=== PATIENT | male | born 1950 | race Caucasian/White ===

== ENCOUNTER → 2017-05-29 17:25 | Outpatient (CLI) | payer OTHER ==
[~2017-05-29 17:25] MED LIST: AMBIEN5 MG PO; B-1100 MG PO; BICARSIM FORTE125 MG PO; CIPRO500 MG PO; COSENTYX (150 MG/1 M SQ; DICY20TA PO; DIOVAN160 M1 PO; DIOVAN40 MG; DIPHENOXYLATE-A1 TAB PO; FLAGYL500MG PO; GABA PO; GABAPENTIN600 MG PO; INTEGRA F CAPS1 EACH PO; INTESTINEX1 CA1 PO; INTESTINEX680 MG PO; LEVSIN/SL0.125 MG SL; LOSARTAN-HCTZ1 EAC1 PO; METOPROLOL SUCC50 MG PO; OXYC1TAB9 PO; OXYCONTIN10 MG PO; PERCOCET 5/3251 TAB PO; PRILOSEC40 MG PO; PROTONIX40 MG PO; TRAM1TAB98 PO; VITAMIN B-125000 MCG SL; WELLBUTRIN SR PO; XANAX1 MG; XARELTO20 MG PO
== END | disposition home or self-care (01) ==
LOC: RAD 17:25
DX: C83.30 Diffuse large B-cell lymphoma, unspecified site (principal)

== ENCOUNTER 2017-07-23 08:11 | Outpatient (CLI) | payer OTHER | END 2017-07-23 08:33 | disposition home or self-care (01) | LOC: NUCLEAR 08:11 | DX: C83.30 Diffuse large B-cell lymphoma, unspecified site (principal); I42.7 Cardiomyopathy due to drug and external agent | CPT/HCPCS: 78472; 78496; A9560 ==

== ENCOUNTER 2018-04-02 10:40 | Day surgery (SDC) | payer OTHER | END 2018-04-02 16:35 | disposition home or self-care (01) | LOC: AMB-ENDOS 10:40 | DX: K64.8 Other hemorrhoids (principal) ==

== ENCOUNTER 2018-06-03 20:07 | Emergency (ER) | payer OTHER ==
[~2018-06-03] VITALS: Ht 172.7 cm; Wt 65.8 kg
== END 2018-06-03 22:35 | disposition home or self-care (01) ==
LOC: ER 20:07
DX: L13.0 Dermatitis herpetiformis (principal)

== ENCOUNTER 2018-12-20 09:16 | Outpatient (CLI) | payer OTHER | END 2018-12-20 11:04 | disposition home or self-care (01) | LOC: SONOGRAMA 09:16 | DX: R80.8 Other proteinuria (principal) ==

== ENCOUNTER 2019-01-10 13:23 | Outpatient (CLI) | payer OTHER | END 2019-01-10 14:00 | disposition home or self-care (01) | LOC: NUCLEAR 13:23 | DX: I42.7 Cardiomyopathy due to drug and external agent (principal) | CPT/HCPCS: 78472; 78496; A9560 ==

== ENCOUNTER 2019-03-01 08:18 | Emergency (ER) | payer OTHER ==
[~2019-03-01] VITALS: Ht 170.2 cm; Wt 67.1 kg
[2019-03-01] MEDS ORDERED: WELLBUTRIN XL300 MG (08:26)
[2019-03-01] MEDS ORDERED: XANAX1 MG (08:26)
== END 2019-03-01 09:57 | disposition home or self-care (01) ==
LOC: ER 08:18
DX: B02.8 Zoster with other complications (principal)

== ENCOUNTER 2019-05-13 07:39 | Outpatient (CLI) | payer OTHER ==
[~2019-05-13 07:39] MED LIST changes: +WELLBUTRIN XL300 MG
== END 2019-05-13 07:54 | disposition home or self-care (01) ==
LOC: NUCLEAR 07:39
DX: I25.10 Atherosclerotic heart disease of native coronary artery without angina pectoris (principal)
CPT/HCPCS: 78452; 93017; A9500; J0153

== ENCOUNTER 2019-05-26 04:42 | Inpatient (IN) | payer OTHER ==
[~2019-05-26] VITALS: Ht 170.2 cm; Wt 68.0 kg
--- NOTE | 2019-05-26 05:06 | NUR ---
PTE REFIERE DOLOR ABDOMINAL DESDE CARLI AL MEDIO RAMSEY. UN EPISODIO DE VOMITOS.
--- NOTE | 2019-05-26 06:05 | NUR ---
SE ORIENTA A PACIENTE SOBRE TRATAMIENTO. SE [place] ,MUESTRAS DE LABORATORIO ORDENADAS. SE CANALIZA CON AREA DE VENOPUNCION ANABEL DE EDEMA O ENROJECIMIENTO. SE ADMINISTRAN MEDICAMENTOS ORDENADOS. SE MANTIENE EN OBSERVACION POR CAMBIOS.
--- NOTE | 2019-05-26 08:15 | NUR ---
PACIENTE ALERTA Y ORIENTADO SE OBSERVA CON IVF PATENTE ANABEL SE MANTIENEEN OBSERVACION EN ESPERA DE ESTUDIO CT SCAN PO SE KURT EN OBSERVACION PO RCAMBIOS EN DARLING CONDCION.
--- NOTE | 2019-05-26 12:40 | NUR ---
PACIENTE ALERTA Y ORIENTADO X3 ES REEVALUADO POR QUIEN ORDENA INSERTAR TUBO NASOGASTRICO Y ADMINISTRAR DOSIS DE ANTIBIOTICO STAT, SE ORIENTA A PACIENTE Y FAMILIAR SOBRE ORDEN MEDICA REFIERE ENTENDER, SE UBICA EN CUBICULO K3 SE EJECUTA ORDEN BAJO MEDIDAS ASESTICAS SE INSERTA NGT POR NARE LT PACIENTE TOLERA PROCEDIMIENTO SE COMIENZA A LOW INTERMITENT SUCCTION ELIMINANDO 200 ML DE LIQUIDO COLOR AMARILLO KUNAL, SE NOTIFICA A DR. BANEGAS, SE MANTIENE EN OBSERVACION, PACIENTE CON CONSULTA CON DR. GREEN.
[2019-05-29] MEDS ORDERED: INTESTINEX680 M1 PO (13:21)
== END 2019-05-29 16:40 | disposition home or self-care (01) | DRG 389 ==
LOC: ER 04:42 → SURH 12:39 → SEC-K 12:39 → SURH 18:38
PROVIDERS: ADMIT Surgery
PROC: BW21Y0Z Computerized Tomography (CT Scan) of Abdomen and Pelvis using Other Contrast, Unenhanced and Enhanced (ICD-10-PCS; principal; 2019-05-26)
PROC: 0DH67UZ Insertion of Feeding Device into Stomach, Via Natural or Artificial Opening (ICD-10-PCS; 2019-05-27)
PROC: 3E0G76Z Introduction of Nutritional Substance into Upper GI, Via Natural or Artificial Opening (ICD-10-PCS; 2019-05-27)
DX: K56.690 Other partial intestinal obstruction (principal); N17.8 Other acute kidney failure; K63.89 Other specified diseases of intestine; G62.0 Drug-induced polyneuropathy; T45.1X5S Adverse effect of antineoplastic and immunosuppressive drugs, sequela

== ENCOUNTER 2019-06-04 12:42 | Outpatient (CLI) | payer OTHER ==
[~2019-06-04] VITALS: Ht 170.2 cm; Wt 68.0 kg
[~2019-06-04 12:42] MED LIST changes: +INTESTINEX680 M1 PO
== END 2019-06-04 13:39 | disposition home or self-care (01) ==
LOC: OFIC 805 12:42
DX: D10.39 Benign neoplasm of other parts of mouth (principal); E86.0 Dehydration; D64.89 Other specified anemias; Z93.2 Ileostomy status; K56.699 Other intestinal obstruction unspecified as to partial versus complete obstruction

== ENCOUNTER 2019-11-21 14:04 | Outpatient (CLI) | payer OTHER | END 2019-11-21 14:30 | disposition home or self-care (01) | LOC: SONOGRAMA 14:04 | PROVIDERS: ATTEND Internal Medicine Geriatric Medicine | DX: E03.8 Other specified hypothyroidism (principal); E04.2 Nontoxic multinodular goiter ==

== ENCOUNTER 2022-08-01 09:05 | Outpatient (CLI) | payer OTHER | END 2022-08-01 09:06 | disposition home or self-care (01) | LOC: NUCLEAR 09:05 | PROVIDERS: ATTEND Internal Medicine Geriatric Medicine | DX: I11.9 Hypertensive heart disease without heart failure (principal) ==

== ENCOUNTER 2022-10-31 13:09 | Outpatient (CLI) | payer OTHER | END 2022-10-31 13:10 | disposition home or self-care (01) | LOC: NUCLEAR 13:09 | PROVIDERS: ATTEND Internal Medicine Cardiovascular Disease | DX: I50.9 Heart failure, unspecified (principal) | CPT/HCPCS: 78472; A9560 ==

== ENCOUNTER 2023-05-21 09:04 | Outpatient (CLI) | payer OTHER | END 2023-05-21 09:06 | disposition home or self-care (01) | LOC: TOM 09:04 | PROVIDERS: ATTEND Internal Medicine Gastroenterology | DX: R19.7 Diarrhea, unspecified (principal); K56.50 Intestinal adhesions [bands], unspecified as to partial versus complete obstruction | CPT/HCPCS: 74178; Q9965 ==

== ENCOUNTER 2023-05-30 10:23 | Outpatient (CLI) | payer OTHER | END 2023-05-30 10:26 | disposition home or self-care (01) | LOC: SONOGRAMA 10:23 | PROVIDERS: ATTEND Internal Medicine Geriatric Medicine | DX: E03.9 Hypothyroidism, unspecified (principal) ==

== ENCOUNTER 2023-08-01 12:48 | Outpatient (CLI) | payer OTHER | END 2023-08-01 13:00 | disposition home or self-care (01) | LOC: TOM 12:48 | PROVIDERS: ATTEND Internal Medicine Pulmonary Disease | DX: J45.31 Mild persistent asthma with (acute) exacerbation (principal); R05.3 Chronic cough; R06.02 Shortness of breath ==

== ENCOUNTER 2024-09-19 10:40 | Outpatient (CLI) | payer OTHER | END 2024-09-19 10:41 | disposition home or self-care (01) | LOC: NUCLEAR 10:40 | PROVIDERS: ATTEND Internal Medicine Endocrinology, Diabetes & Metabolism | DX: M81.0 Age-related osteoporosis without current pathological fracture (principal) ==

== ENCOUNTER 2024-10-16 09:03 | Outpatient (CLI) | payer OTHER | END 2024-10-16 09:04 | disposition home or self-care (01) | LOC: NUCLEAR 09:03 | PROVIDERS: ATTEND Podiatrist Foot Surgery | DX: I73.9 Peripheral vascular disease, unspecified (principal); R60.9 Edema, unspecified; M25.572 Pain in left ankle and joints of left foot; M25.571 Pain in right ankle and joints of right foot ==